=== PATIENT | male | born 1955 | race Caucasian/White ===

== ENCOUNTER 2018-10-07 23:09 | Inpatient (IN) | payer OTHER, MEDICARE ==
[~2018-10-07] VITALS: Ht 182.8 cm; Wt 95.3 kg
--- NOTE | ~2018-10-07 | EKG ---
[place], [place] ELECTROCARDIOGRAM REPORT NAME: JOSE THAKUR UNIT #: [id number] ROOM: [facility] DOCTOR: STEVENSON DRAFT REPORT BIRTHDATE: [birth year] [facility] [place] Test Date: 2018-10-07 Test Time: 23:51:27 Pat Name: JOSE THAKUR Department: ED Room: [facility] Gender: M Preprint Analyst: Sandy Costa : 1955 Requested By: HAJA PECK Order Number: [id number] Reading MD: Alex Chaudhary MD Measurements Intervals [place] Rate: 116 P: 59 GA: 184 QRS: -27 QRSD: 79 T: 43 QT: 312 QTc: 434 Interpretive Statements Sinus tachycardia Consider left atrial enlargement Borderline left axis deviation ST elevation, consider inferior injury Electronically Signed On 10-08-2018 15:59:16 PST by Alex Chaudhary MD CM:EKGRPT:ELECTROCARDIOGRAM REPORT [id number] HAJA PECK EPIPHANY DRAFT REPORT HAJA PECK
--- NOTE | ~2018-10-07 | CON ---
[place], [place] REPORT OF CONSULTATION NAME: JOSE THAKUR UNIT #: [id number] ROOM: [facility] DOCTOR: JOSE AREVALO MD BIRTHDATE: [birth year] DOS: 10/08/2018 PSYCHIATRIC CONSULTATION CHIEF COMPLAINT: "I got to get out of here man, my son is even afraid of me. I have to go help save him" HISTORY OF PRESENT ILLNESS: This is a 62-year-old white male who was brought into [facility] Emergency Room via EMS. The patient was attempting to leona a local convenience store when Police intervened. He became verbally and physically aggressive towards them. In the course of their dealing with him, it became very evident to them that the patient was grossly psychotic and delusional and they brought him to the Emergency Room at [facility] for further evaluation. Once in the Emergency Room, he was assessed and again found to be grossly delusional and psychotic and did require multiple p.r.n. intervention. He was ultimately brought up to ICU due to acute kidney failure with tubular necrosis. The patient has required multiple intramuscular injections of Geodon, Ativan, and Benadryl with partial response. Currently, the patient is rather somnolent and slurred in his speech, but his thoughts are fragmented and disjointed. There is a significant amount of paranoia and delusion present. He is able to tell me that he normally resides in [place], [place], but was on his way to [place] with his girlfriend when they were going to stop and visit his son in [place], [place]. Beyond this, he then went off into a nonsensical ramble. MENTAL STATUS: The patient is alert and oriented to person, unclear if he knows what hospital he is in, he does at least know he is in a hospital. He could not tell me how long he has been here and states the reason he is here in the hospital is because he has an ulcer on his tongue. His thoughts are fragmented and disjointed. He jumps from topic to topic, and he is grossly delusional and psychotic. There is no soham or hypomania present. He does process conversation slowly, and at times, inappropriately. Memory is somewhat suspect because of the gross psychosis. DIAGNOSIS: Schizoaffective disorder. PLAN: Given the fact that he has tolerated the intramuscular Geodon well with at least partial response, I will order Geodon 80 mg b.i.d. This should at least help control some of his mood lability, agitation, and aggression. Should you require further input or any other suggestions, please reconsult us at any time. [place], [place] REPORT OF CONSULTATION NAME: KVNGCHENGBETZYJOSE UNIT #: [id number] ROOM: [facility] DOCTOR: JOSE AREVALO MD BIRTHDATE: [birth year] JOSE AREVALO MD CM:CONSTR:REPORT OF CONSULTATION [id number] 10/09/18 0010 interface
[2018-10-07 23:10] VITALS: BP 169/103
--- NOTE | 2018-10-07 23:10 | NUR ---
OFFICER YUAN WITH [employer] AT BEDSIDE.
--- NOTE | 2018-10-07 23:17 | NUR ---
PT WHEN ASKED FOR ALLERGIES TO MEDICATIONS, STATES DO NOT GIVE ME HALIDOL AND COMPAZINE, PT STATES "THEY EFFECT MY KIDNEY FUNCTIONS AND DON'T WORK WELL WITH ME".
[2018-10-07 23:29] VITALS: BP 139/76
[2018-10-08] VITALS (8 sets, daily range): BP systolic 109–158; BP diastolic 75–111
[2018-10-08 00:01] LABS: BILIRUBIN NEGATIVE (NEGATIVE); BLOOD TRACE-LYSED (NEGATIVE); CLARITY CLEAR (CLEAR); COLOR YELLOW (YELLOW); GLUCOSE NEGATIVE (NEGATIVE); KETONE NEGATIVE (NEGATIVE); LEUKO ESTERASE NEGATIVE (NEGATIVE); NITRITE NEGATIVE (NEGATIVE); PH 5.5 (5.0-9.0); SPECIFIC GRAVITY 1.025 (1.005-1.030); UROBILINOGEN 0.2 E.U./dl (0.2-1.0)
[2018-10-08 00:13] LABS: URINE AMPHETAMINES < 1000 (1000ng/ml); URINE BARBITURATES < 200 (200ng/ml); URINE BENZODIAZEPINES < 200 (200ng/ml); URINE CANNABINOIDS (THC) < 50 (50ng/ml); URINE COCAINE < 300 (300ng/ml); URINE METHADONE < 300 (300ng/ml); URINE OPIATES < 300 (300ng/ml); URINE PHENCYCLIDINE < 25 (25ng/ml)
[2018-10-08 00:15] LABS: WBC 0-2 wbc/hpf (0-5)
[2018-10-08 00:31] LABS: BASO # 0.1 10*3/uL (0.0-0.1); BASO % 0.5 % (0.0-1.0); EOS # 0.1 10*3/uL (0.0-0.4); EOS % 0.8 % (1.0-4.0); HEMATOCRIT 45.9 % (42.0-52.0); HEMOGLOBIN 15.4 g/dl (14.0-18.0); LYMPH # 1.8 10*3/uL (1.3-4.4); LYMPH % 18.8 % (27.0-41.0); MEAN CELL VOLUME 93.7 fl (80.0-94.0); MEAN CORPUSCULAR HGB 31.4 pg (27.0-31.0); MEAN CORPUSCULAR HGB CONC 33.6 g/dl (33.0-37.0); MEAN PLATELET VOLUME 10.8 fl (9.6-12.3); MONO # 0.6 10*3/uL (0.1-1.0); MONO % 6.6 % (3.0-9.0); NEUT # 7.1 10*3/uL (2.3-7.9); PLATELET COUNT AUTOMATED 195 10*3/uL (130-400); RED CELL DISTRI WIDTH 13.3 % (0-14.5); WHITE BLOOD COUNT 9.7 10*3/uL (4.8-10.8)
--- NOTE | 2018-10-08 00:46 | NUR ---
ESTABLISHED IV ACCESS PT MADE NUMEROUS AGRESSIVE GESTURES IE CLINCHED FIST AND VERBAL THREATS OF HARM TO STAFF, AFTER IV WAS ESTABLISHED PT GIVEN SANDWICH AND MILK, PT CONTINUES DISORGANIZED SPEECH AND WORD SALAD BED RAILS UP X 2 BED IN LOWEST POSITION PT TO GO TO CT AWAITING NURSE TO RETURN FROM ADMISSION OF PT TO FLOOR SO THIS RN MAY ACCOUMPANY CT STAFF
[2018-10-08 00:49] LABS: ALBUMIN 3.4 gm/dl (3.1-4.5); ALKALINE PHOSPHATASE 69 U/L (45-117); BUN 56 mg/dl (7-24); CHLORIDE 109 mmol/L (98-107); CREATININE 2.35 mg/dL (0.70-1.30); POTASSIUM 4.4 mmol/L (3.5-5.1); SGOT/AST 34 IU/L (3-35); SGPT/ALT 66 U/L (12-78); SODIUM 139 mmol/L (136-145); TOTAL PROTEIN 8.1 gm/dL (6.4-8.2)
[2018-10-08 00:51] LABS: ACETAMINOPHEN (TYLENOL) < 5.0 ug/ml (10-30); ETHYL ALCOHOL < 3.0 mg/dl (<3); TROPONIN I < 0.015 ng/ml (<0.045)
--- NOTE | 2018-10-08 01:18 | NUR ---
ESCOUTED PT TO CT AND BACK TO ROOM #3, PT FOLLOWED DIRECTION TO MOVE FROM PORTABLE BED TO CT TABLE AND BACK TO BED, PT HOWEVER WOULD NOT REMAIN STILL LONG ENOUGH FOR ENTIRE CT DISPITE MULTIPLE ATTEMPS PT CONTINUES TO SPEAK IN UNRELATED SENTENCE FRAGMENTS OFTER THE SUBJECT OF WAR AND GOVERNMENT. IV FLUIDS RUNNING WILL CONTINUE TO MONITOR PT BED IN LOWEST POSITION BED RAILS UP X 2
--- NOTE | 2018-10-08 01:50 | NUR ---
[facility] OFFICER MONIKA HERE TO SPEAK WITH PT AND SERVE PT WIT ARREST PAPERS, PT CONTINUES TO SPEAK IN FRAGMENTED SENTENCES UNRELATED FROM 60'S MUSIC TO WAR SUBJECTS PT REMAINS AT THIS TIME IN BED
--- NOTE | 2018-10-08 02:51 | NUR ---
PT SLEEPIN IN LOW FOWLERS AIRWAY PATENT RESP EASY NO SIGN OF DISTRESS VVS
--- NOTE | 2018-10-08 03:42 | NUR ---
MENTAL HEALTH JENARO TOOK CONSULT.
--- NOTE | 2018-10-08 04:27 | NUR ---
AWAITING FOR NURSE SUPERVISION TO CALL AND GIVE PERMISSION TO TRANSPORT PT TO ICU
--- NOTE | 2018-10-08 04:28 | NUR ---
DPT RESP EASY PT SLEEPING NO SIGN OF DISTRESS BED IN LOWEST POSITON BED RAILS UP X 2
--- NOTE | 2018-10-08 05:07 | NUR ---
PT RESP EASY RATE 22 NO SIGN OF DISTRESS
--- NOTE | 2018-10-08 05:20 | NUR ---
A 62, admitted to ICCU, under the services of CRISTOBAL Tran DO with a diagnosis of AC RENAL FAILURE,DELUSIONAL DISORDER. Chief complaint is DELUSIONAL. Patient arrived via stretcher from ER. Monitor applied. Initial assessment completed. Vital signs taken and recorded. CRISTOBAL TRAN DO notified of admission to the unit. Orders received. See assessment for past medical history, medications and allergies. Patient and/or family oriented to unit. [facility] ICCU visitation policy reviewed. Clothing/patient valuable form completed. JUAN M PEGUERO
--- NOTE | 2018-10-08 06:26 | NUR ---
DR. CHAKRABORTY OK WITH WAITING TILL PATIENT WAKES UP FOR BLOOD DRAW. STAFF TO CALL LAB WHEN AWAKE.
--- NOTE | 2018-10-08 07:37 | NUR ---
MESSAGE LEFT ON JUAN M HARRIS CELL PHONE.
--- NOTE | 2018-10-08 07:43 | NUR ---
IN THE MIDDLE OF SHIFT REPORT PATIENT BECAME RESTLESS, MUMBLED SOMEWHAT INCOHERENTLY THAT HE WANTED A BLANKET. BLANKET WAS PROVIDED THEN HE BECAME MORE AND MORE AGITATED, JUMPED OUT OF BED. DOROTHY COX WAS CALLED. PT MEDICATED PER NOV AND IS NOW RESTING WITH HIS EYES CLOSED. IV FLUIDS CONTINUE. MONITOR NSR.
--- NOTE | 2018-10-08 07:52 | NUR ---
PT SLEEPING. SECURITY AT THE BEDSIDE.
--- NOTE | 2018-10-08 07:52 | NUR ---
Shift chart check completed.24 HR chart check completed.
--- NOTE | 2018-10-08 09:34 | NUR ---
AWAKE, ATTTEMPTING TO GET OUT OF BED. ASSISTED TO STAND TO VOID. COOPERATIVE. VERY UNSTEADY ON HIS FEET. SECURITY REMAINS IN ICCU. FOOD HERE. PT EATING WITHOUT DIFFICULTY.
--- NOTE | 2018-10-08 10:20 | NUR ---
DR AREVALO VISITED BRIEFLY, ORDERS RECEIVED. PT ATE WELL FOR BREAKFAST, THEN ROLLED OVER ONTO HIS SIDE AND APPEARS TO BE SLEEPING EASILY. SECURITY REMAINS IN ICCU.
--- NOTE | 2018-10-08 11:35 | NUR ---
CONTINUES TO SLEEP EASILY ON HIS LEFT SIDE.
--- NOTE | 2018-10-08 11:54 | NUR ---
AWAKE, OUT OF BED TO URINATE. PT MUMBLES "DON'T TELL MY FAMILY I'M HERE, I'M UNDER COVER".
--- NOTE | 2018-10-08 11:59 | NUR ---
PT SINGING, TELLING JOKES, LAUGHING......COOPERATIVE AT PRESENT.
--- NOTE | 2018-10-08 12:57 | NUR ---
PATIENT JUMPS UP OUT OF BED(WITHOUT WARNING) TO USE BSC/URINAL. HE TALKS TO ANYONE AND EVERYONE IN THE ICCU. HE ATE EVERYTHING FOR LUNCH AND WE ORDERED ANOTHER TWO GRILLED CHEESE SANDWICHES/TOMATO SOUP. HE'S NOW "WRITING A LETTER WITH PAPER AND A PENCIL". HE'S NOT BEEN COMBATIVE AT THIS TIME.
--- NOTE | 2018-10-08 13:02 | NUR ---
HANDED ME A LETTER AND ASKED THAT I GIVE IT TO THE PERSON. I ASKED WHO IT WAS AND HE TOOK THE LETTER BACK AND LAID BACK IN BED AND "GO TO HELL, ALL OF YOU. GO TO HELL". JUAN M HARRIS IS AWARE OF PATIENT'S ADMISSION.
--- NOTE | 2018-10-08 13:05 | NUR ---
"I'M TRYING TO PREVENT THERMONUCLEAR WAR".
--- NOTE | 2018-10-08 13:46 | NUR ---
PT ATE TWO MORE GRILLED CHEESE SANDWICHES AND TOMATO SOUP AND IS NOW SLEEPING.
[2018-10-08 14:25] LABS: BASO % 0.5 % (0.0-1.0); EOS # 0.3 10*3/uL (0.0-0.4); EOS % 4.4 % (1.0-4.0); HEMOGLOBIN 14.4 g/dl (14.0-18.0); LYMPH # 1.7 10*3/uL (1.3-4.4); LYMPH % 26.8 % (27.0-41.0); MEAN CELL VOLUME 95.4 fl (80.0-94.0); MEAN CORPUSCULAR HGB 31.2 pg (27.0-31.0); MEAN CORPUSCULAR HGB CONC 32.7 g/dl (33.0-37.0); MONO # 0.4 10*3/uL (0.1-1.0); MONO % 7.1 % (3.0-9.0); NEUT # 3.8 10*3/uL (2.3-7.9); NEUT % 60.9 % (47.0-73.0); PLATELET COUNT AUTOMATED 153 10*3/uL (130-400); RED BLOOD COUNT 4.61 10*6/uL (4.50-5.90); RED CELL DISTRI WIDTH 13.5 % (0-14.5); WHITE BLOOD COUNT 6.2 10*3/uL (4.8-10.8)
[2018-10-08 14:36] LABS: ACT PARTIAL THROMBO TIME 22.2 SECONDS (20.8-31.5)
[2018-10-08 14:41] LABS: ALBUMIN 2.9 gm/dl (3.1-4.5); CREATININE 2.23 mg/dL (0.70-1.30); PHOSPHOROUS 3.1 mg/dL (2.5-4.9); TOTAL PROTEIN 6.7 gm/dL (6.4-8.2)
[2018-10-08 14:42] LABS: FREE T4 1.14 ng/dl (0.76-1.46)
[2018-10-08 14:47] LABS: THYROID STIM HORMONE (HS) 1.47 uIU/ml (0.358-4.75)
--- NOTE | 2018-10-08 14:55 | NUR ---
IV ATIVAN FOR AGITATION. HE ASKS FOR A DRINK OF WATER THEN GETS ANGRY ABOUT THE SIZE OF THE CUP.
--- NOTE | 2018-10-08 15:02 | NUR ---
SLEEPING AT PRESENT WITHIN MINUTES OF IV ATIVAN. BED IS IN LOW POSITION WITH WHEELS LOCKED.
--- NOTE | 2018-10-08 15:23 | NUR ---
spoke with the [facility] early this am, they did call me back to get more information because they could not find client in their system, i explained that he is from [place] so they said that is different for them being in [place] so they have to look further, they did not call me back after that so i called them about 2:30pm and they said they dont have a cm there today and they may not get to this today, so i asked if they could tell me if he is service connected or should i be looking for a psych bed at another facility? they then said i could fax them the clinicals , but that did not guarantee admission, so i did do that, i called [facility] and spoke with the nurse, they are not sure if he is medically stable, they did just call me and say that he is, i did talk with Evangelina Tenorio and to apprise her and to see what they might want do as [facility] at [facility]. i tried to call the number on his chart to see if i could speak to a family member but the number rings busy all the time. i do not know why this clientis here from [place]. i did ask registration to check and see if client has medicare as he clearly is SMD so he might, and he does have medicare both A and B. Evangelina is going to check with the [facility] here to see if client could be admitted to them. i will follow as needed.
--- NOTE | 2018-10-08 15:30 | NUR ---
HAVE TALKED WITH JUAN M HARRIS ABOUT PT. PER DR VILLALOBOS THE PT IS MEDICALLY STABLE. JUAN M HARRIS WILL LET [facility] RN DIRECTOR KNOW. JUAN M ALSO RELAYS THAT SHE HAS BEEN IN CONTACT WITH [facility] [employer]. SHE WILL BE ENTERING HER NOTE SOON. THE PT IS STILL SLEEPING FROM THE IV ATIVAN.
[2018-10-08 15:35] LABS: VITAMIN D, 25-HYDROXY 26.5 ng/mL (30-100)
--- NOTE | 2018-10-08 16:39 | NUR ---
AWAKE, MUMBLING "SHIT, A LOT OF SHIT HERE". COOPERATIVE, NON COMBATIVE AT PRESENT. IV FLUIDS CONTINUE.
--- NOTE | 2018-10-08 16:56 | NUR ---
HAD SMALL EMESIS. ASSISTED TO CHAIR. PT RAMBLING CONVERSATION. ASKED IF HIS FAMILY KNOWS WHERE HE IS HE STATES "I DON'T HAVE ANY FAMILY, I KILLED THEM ALL". "IN [place]". WHEN QUESTIONED FURTHER HE SAID "I DON'T WANT TO TALK TO YOU ANYMORE, I WANT TO LEAVE THE PAST IN THE PAST."
--- NOTE | 2018-10-08 17:08 | NUR ---
SITTING UP IN CHAIR AT PRESENT. WANTS FOOD, IN SPITE OF SMALL EMESIS EARLIER.
--- NOTE | 2018-10-08 18:26 | NUR ---
BACK TO BED WITH MINIMAL ASSIST. COOPERATIVE.
--- NOTE | 2018-10-08 19:10 | NUR ---
24 HR chart check completed.
--- NOTE | 2018-10-08 20:30 | NUR ---
PATIENT BECAME AROUSED, TALKING INCOHERENT, BECOMING RESTLESS. ATIVAN GIVEN. WILL MONITOR.
--- NOTE | 2018-10-08 21:00 | NUR ---
ATIVAN EFFECTIVE. PATIENT RESTING.
--- NOTE | 2018-10-08 22:06 | NUR ---
PATIENT TRYING TO GET OUT OF BED, PULLING AT IV, STATED WE WERE ALL AND WE WERE LU PEREZ SISTERS. CONTACTED DR. WADSWORTH, NEW ORDERS RECEIVED.
--- NOTE | 2018-10-08 22:34 | NUR ---
PATIENT GIVEN ATIVAN AND BENADRYL FOR AGITATION. WILL MONITOR. AND REASSESS.
--- NOTE | 2018-10-08 23:00 | NUR ---
PATIENT RESTING, NO SIGNS OF DISTRESS. BENADRYL AND ATIVAN EFFECTIVE.
[2018-10-09] VITALS: BP 148/90
--- NOTE | 2018-10-09 00:19 | NUR ---
PATIENT AWAKE, UNCOOPERATIVE, CALLING STAFF BITCHES. PATIENT WANTED TO STAND TO TO USE BEDSIDE, REFUSING TO USE URINAL. PATIENT UNSTEADY. GOT PATIENT BACK IN BED, HE WANTED A SNACK, GAVE HIS SOME JEANA CRACKERS, HE CRUMBLED THEM AND THREW THEM AT ME. WAS GIVEN A BOX LUNCH FROM ANOTHER RN AND HE PROCEDED TO EAT THE SANDWICH. WILL CONTINUE TO MONITOR.
--- NOTE | 2018-10-09 00:35 | NUR ---
PATIENT MORE RESTLESS, TRYING TO GET OUT OF BED, ATIVAN GIVEN. WILL REASSESS.
--- NOTE | 2018-10-09 01:00 | NUR ---
PATIENT STILL RESTLESS, ATIVAN NOT EFFECTIVE. PATIENT WANTS MOVED TO RECLINING CHAIR. WAS DONE. WILL MONITOR.
--- NOTE | 2018-10-09 01:40 | NUR ---
PATIENT RESTLESS IN CHAIR, WANTS MOVED BACK TO BED. WAS PLACED BACK IN BED.
--- NOTE | 2018-10-09 03:45 | NUR ---
PATIENT RESTLESS, AGAIN, TRYING TO GET OUT OF BED, PATIENT WANTING TO EAT AND WANTS COFFEE. EXPLAINED WHEN HE COULD GET BREAKFAST. ATIVAN GIVEN. EFFECTIVE ALMOST IMMEDIATELY.
[2018-10-09 04:00] VITALS: BP 156/90
--- NOTE | 2018-10-09 04:33 | NUR ---
PATIENT AWAKE, WANTS TO WALK AROUND. TOLD THE PATIENT HE WASNT ALLOW IN ICU. HE STATED TO GET ME OUT OF HERE THEN. I TOLD HIM HE COULD TALK TO A DR IN THE MORNING AND HE STATED "BRING HIM HERE, I WILL CUT OFF HIS BALLS". INFORCED THE NEED TO STAY IN BED, AND LOWER HIS VOICE AND TV DUE TO THE OTHER PATIENTS.
[2018-10-09 05:10] LABS: BASO % 0.5 % (0.0-1.0); EOS # 0.4 10*3/uL (0.0-0.4); EOS % 5.9 % (1.0-4.0); HEMATOCRIT 42.8 % (42.0-52.0); HEMOGLOBIN 13.7 g/dl (14.0-18.0); LYMPH # 1.3 10*3/uL (1.3-4.4); LYMPH % 19.4 % (27.0-41.0); MEAN CELL VOLUME 97.1 fl (80.0-94.0); MEAN CORPUSCULAR HGB 31.1 pg (27.0-31.0); MEAN PLATELET VOLUME 11.4 fl (9.6-12.3); MONO # 0.4 10*3/uL (0.1-1.0); MONO % 6.5 % (3.0-9.0); NEUT # 4.3 10*3/uL (2.3-7.9); NEUT % 67.4 % (47.0-73.0); PLATELET COUNT AUTOMATED 144 10*3/uL (130-400); RED BLOOD COUNT 4.41 10*6/uL (4.50-5.90); RED CELL DISTRI WIDTH 13.5 % (0-14.5); WHITE BLOOD COUNT 6.4 10*3/uL (4.8-10.8)
--- NOTE | 2018-10-09 05:13 | NUR ---
PATIENT BIT TUBING FOR IVF, AND REMOVED HEART MONITOR AND STATED HE WANTS TO GET UP AND WALK. PATIENT INSTRUCTED TO GET UP IN BED, DO NOT TOUCH THE IV TUBING AND HEART MONITOR.
[2018-10-09 05:29] LABS: PHOSPHOROUS 2.6 mg/dL (2.5-4.9); TOTAL PROTEIN 6.7 gm/dL (6.4-8.2)
[2018-10-09 05:32] LABS: POTASSIUM 4.7 mmol/L (3.5-5.1)
--- NOTE | 2018-10-09 07:11 | NUR ---
24 HR chart check completed.
[2018-10-09 08:00] VITALS: BP 168/105
--- NOTE | 2018-10-09 08:38 | NUR ---
PT VERY UNCOPERATIVE, DELUSIONAL, FLIGHT OF IDEAS AND VERBALLY ABUSIVE AT TIMES. MEDICATED WITH ATIVAN 2MG IV WITH NO RELIEF.
--- NOTE | 2018-10-09 10:50 | NUR ---
spoke with bed control at the [facility] [place], client has been assigned a cm who is off today, i spoke with them to inquire whether they were going to consider/accept client for their unit, she told me she will have the nurse call me back today. i am not sure if this is still a possible plan for client or if he is going to go to our [facility], but [facility] with the [facility] until i know otherwise or until they possibly take him .
[2018-10-09 12:00] VITALS: BP 169/102
--- NOTE | 2018-10-09 12:19 | NUR ---
SPOKE WITH JUAN M HARRIS R/T PT'S TRANSFER TO [facility] FOR [facility]. JUAN M STATED THAT SHE HAS BEEN TRYING SINCE YESTERDAY TO TRY AND MAKE ARRANGEMENTS FOR TRANSFER WHEN PT IS MEDICALLY STABLE. I INFORMED JUAN M THAT PT HAS BEEN DEEMED MEDICALLY ATABLE AT THIS TIME. SHE STATES SHE WILL CONTINUE TRYING.
[2018-10-09] MEDS ORDERED: VITAMIN D32000 UNI1 PO (14:59)
[2018-10-09] MEDS ORDERED: ZIPRASIDONE HCL80 M1 PO (14:59)
--- NOTE | 2018-10-09 15:59 | NUR ---
PT DC TO [facility].
== END 2018-10-09 16:05 | disposition home health service (06) | DRG 682 ==
LOC: ED 23:09 → EDHOLD 10-08 02:34 → ICCU 10-08 02:34
PROVIDERS: Internal Medicine Nephrology; Nurse Practitioner; ADMIT Internal Medicine
DX: N17.0 Acute kidney failure with tubular necrosis (principal); G93.41 Metabolic encephalopathy; F23 Brief psychotic disorder; R65.10 Systemic inflammatory response syndrome (SIRS) of non-infectious origin without acute organ dysfunction; E78.5 Hyperlipidemia, unspecified; F17.200 Nicotine dependence, unspecified, uncomplicated; F31.9 Bipolar disorder, unspecified; I12.9 Hypertensive chronic kidney disease with stage 1 through stage 4 chronic kidney disease, or unspecified chronic kidney disease; N18.9 Chronic kidney disease, unspecified; R31.9 Hematuria, unspecified; F25.9 Schizoaffective disorder, unspecified; F22 Delusional disorders

== ENCOUNTER 2018-10-09 15:51 | Inpatient (IN) | payer MEDICARE, OTHER ==
[~2018-10-09] VITALS: Ht 186.6 cm; Wt 113.4 kg
--- NOTE | ~2018-10-09 | WRIGHTHP ---
[place], [place] PATIENT HISTORY AND PHYSICAL EXAM NAME: JOSE THAKUR UNIT #: [id number] ROOM: 310 DOCTOR: MANUEL RAMOS CNP BIRTHDATE: [birth year] DOS: 10/10/2018 CHIEF COMPLAINT: "There is nothing wrong with my heart." HISTORY OF PRESENT ILLNESS: This is a 62-year-old white male who was brought to [facility] Emergency Room via EMS. The patient was attempting to leona a local convenience store when police intervened. He became verbally and physically aggressive towards them at that time. In the course of their dealing with him, it became very evident to them that the patient was grossly psychotic and delusional and they brought him to the Emergency Room at [facility] for further evaluation. Once in the Emergency Room, he was assessed and again found to be grossly delusional and psychotic and did require multiple p.r.n. intervention. He was ultimately transferred to the ICU due to acute kidney failure with tubular necrosis. The patient required multiple intramuscular injections of Geodon, Ativan, and Benadryl with partial response. The patient reported that he normally resides in [place]. The patient continued to exhibit psychotic behaviors. Once he was medically cleared from the ICU, it was decided to transfer the patient down to the Behavioral Health Unit, so he is now admitted to the Behavioral Health Unit to rule out further organic factors and attempt to stabilize him on medications. We will encourage the patient to engage in individual and kruse milieu activity. We will continue fall and safety precautions and plan to return the patient to the least restrictive environment when he is considered psychiatrically stable. PAST MEDICAL HISTORY: Positive for acute kidney failure with tubular necrosis, brief psychotic disorder, hyperlipidemia, schizophrenia, bipolar disorder, essential hypertension and chronic kidney disease. SOCIAL HISTORY: The patient does smoke cigarettes. It is unclear at this time if he has any drug or alcohol use. STRENGTHS: The patient is ambulatory. WEAKNESSES: The patient is exhibiting psychosis at this time. MENTAL STATUS: The patient is alert and oriented to self. He is somewhat irritable and agitated; however, cooperative. No overt soham or hypomania noted. The patient remains delusional. No paranoia noted. No auditory or visual hallucinations noted at this time. The patient does remain psychotic. DIAGNOSES: Brief psychotic disorder, schizophrenia, bipolar disorder. PLAN: We will change the patient's Depakote syrup to Depakote tablets 500 mg 3 times a day, due to the patient not taking the syrup and liquids. I will put the Geodon 80 mg on hold at this time until we were able to obtain an EKG to check for QT prolongation and plan after consultation with Dr. Olmedo to increase Thorazine to 100 mg 3 times a day. I will continue to plan to engage the patient in individual and kruse milieu activity. Continue on safety cropped precautions. Plan to return the patient to the least restrictive environment once he is considered psychiatrically stable. [place], [place] PATIENT HISTORY AND PHYSICAL EXAM NAME: JOSE THAKUR UNIT #: [id number] ROOM: 310 DOCTOR: MANUEL RAMOS CNP BIRTHDATE: [birth year] Manuel Ramos CNP CM:HISPHYS:PATIENT HISTORY AND PHYSICAL EXAMINATION 1515 [id number] MANUEL RAMOS CNP 10/10/18 1642 interface
--- NOTE | ~2018-10-09 | PR ---
[place], [place] PROGRESS NOTE NAME: JOSE THAKUR UNIT #: [id number] ROOM: 310 DOCTOR: JOSE AREVALO MD BIRTHDATE: [birth year] DOS: 10/11/2018 CHIEF COMPLAINT: "Ya the kittens were in the pine box and I was there to." SUMMARY OF THE VISIT: The patient was interviewed as he was sitting at the edge of the dining area. He engaged readily in conversation that was very bizarre and disjointed. He jumped from topic to topic. I did attempt to reorient him and discussed with him the fact that he is here on a police hold and he did not want to talk about that. He did state that he would at least take pills as long as they were not capsules or liquids as he was afraid that those types of medicines would be poisoned. He continues to be very bizarre, very sexually inappropriate with female staff and residents. He is at least taking his medicine and is not exhibiting sedation, somnolence, extrapyramidal symptoms or tardive dyskinesia. MENTAL STATUS: He is alert and oriented. Mood does seem to be labile. Affect inappropriate. There is no soham, hypomania, but he is grossly psychotic. Memory does have gaps. PLAN: I have added Zyprexa 10 mg b.i.d. given the severity of his psychosis and his inappropriate behavior. We will monitor and support. JOSE AREVALO MD CM:PNTRANS [id number] JOSE AREVALO MD 10/11/18 1148 interface
--- NOTE | ~2018-10-09 | EKG ---
[place], [place] ELECTROCARDIOGRAM REPORT NAME: JOSE THAKUR UNIT #: [id number] ROOM: 310 DOCTOR: EPIPHANY DRAFT REPORT BIRTHDATE: [birth year] [facility] Test Date: 2018-10-10 Test Time: 14:28:46 Pat Name: JOSE THAKUR Department: Room: 310 1 Gender: M Clinical Applications Manager: Lindsey Elena : 1955 Requested By: JOSE AREVALO Order Number: [id number] Reading MD: Rubin Vasquez MD Measurements Intervals [place] Rate: 85 P: 37 MD: 207 QRS: 12 QRSD: 81 T: 54 QT: 364 QTc: 433 Interpretive Statements Sinus rhythm Borderline prolonged MD interval Anteroseptal infarct, age indeterminate Compared to ECG 10/07/2018 23:51:27 Sinus tachycardia no longer present ST (T wave) deviation no longer present Myocardial infarct finding still present Electronically Signed On 10-10-2018 20:09:59 PST by Rubin Vasquez MD CM:EKGRPT:ELECTROCARDIOGRAM REPORT 1428 08 JOSE GAMINO DRAFT REPORT JOSE AREVALO MD
--- NOTE | ~2018-10-09 | PR ---
[place], [place] PROGRESS NOTE NAME: JOSE THAKUR UNIT #: [id number] ROOM: 310 DOCTOR: JOSE AREVALO MD BIRTHDATE: [birth year] DOS: 10/12/2018 INTERVAL NOTE CHIEF COMPLAINT: "No, please [facility]'t [facility] to the [facility], you guys are doing a pretty good job here." SUMMARY OF THE VISIT: The patient was interviewed in the dining area. He was ordering his meals for tomorrow. He was rather loud and boisterous, but as I approached and engaged him, he calmed down and engaged readily in conversation. I discussed with him the possible [facility] to the [facility] to which he objected to and stated he did not want to go to the [facility]. Instead, he reported that we are doing a good job and he had lelo in the medicines that we were utilizing for him. I reiterated to him that he needed to continue to comply with his care here for us to even consider a continued length of stay. He nodded in approval. Nurses do report that he did comply with his nighttime medicines and overall has redirected a little better than he had previously. He is still loud and boisterous. He is also sexually inappropriate with both patients and with staff. MENTAL STATUS: He is alert and oriented to person, place, and time. Mood remains expansive and labile. Affect at times inappropriate. He is grossly psychotic as well. Memory for the most part is intact. PLAN: I will utilize 2 antipsychotics at this point in time given the severity of his symptomatology and the fact that he represents a substantial risk of harm to self and others. I will utilize Invega 9 mg in the morning and increase his Latuda to 80 mg twice daily in an effort to try to control his mood lability and psychosis. We will engage in individual and kruse milieu activities, returning to the least restrictive environment when psychiatrically stable. JOSE AREVALO MD CM:PNTRANS [id number] JOSE AREVALO MD 10/12/18 1304 interface
--- NOTE | ~2018-10-09 | DS ---
[place], [place] DISCHARGE SUMMARY NAME[id number] UNIT #: [id number] ROOM: 310 DOCTOR: JOSE AREVALO MD BIRTHDATE: [birth year] DOS: 10/12/2018 CHIEF COMPLAINT: "There is nothing wrong with my heart." HISTORY OF PRESENT ILLNESS: This is a 62-year-old white male who was brought to [facility] Emergency Room via EMS. The patient was attempting to leona a local convenience store when police intervened. He became verbally and physically aggressive towards them. In the course with them dealing with him, he was found to be grossly psychotic and it was felt that a hospital evaluation was warranted. The patient was brought to the Emergency Room at [facility] and was found to be grossly delusional and psychotic. He required multiple p.r.n. interventions while in the Emergency Room and ultimately was transferred to ICU due to acute renal failure and tubular necrosis. While on the medical floor, the patient continued to require intermuscular injections with good results. The patient was subsequently transferred to the [facility] to further evaluate and to stabilize on medication. SUMMARY OF HOSPITAL COURSE: The patient was admitted to the [facility] and was initially attempted to be stabilized on Geodon; however, the patient refused to take this medication and refused any of the older antipsychotics. I did offer him Invega, which he did take and later Latuda which he did take at nighttime. After several doses of these medications, the patient did improve and did start verbalizing that he was feeling better. He also at the same time verbalized that he did not have a place to stay and was concerned about where he would go. Later that same day, after stating that he was better, the patient began to refuse to engage in any group activities and began to be very loud and demanding about having his laundry done. It became evident that the patient was attempting to malinger and stay in the hospital longer. For this reason and because he had shown such significant improvement early on, it was felt that he could be discharged at that time. The patient was sent here on a police hold and at the time of discharge the police were notified and did meet him after he left the unit and brought him to the retirement to be further evaluated. MENTAL STATUS AT THE TIME OF DISCHARGE: The patient was alert and oriented to person, place and time. Mood at times was somewhat labile, but this seemed controllable. There was no overt true soham or hypomania. There were no gross psychotic symptoms. Memory for the most part was fully intact. There was no symptom suggestive of somnolence, sedation, extrapyramidal symptoms or tardive dyskinesia. DISCHARGE DIAGNOSIS: Schizoaffective disorder. DISPOSITION: The patient was discharged under the care of the [facility]. [place], [place] DISCHARGE SUMMARY NAME: JOSE THAKUR UNIT #: [id number] ROOM: 310 DOCTOR: JOSE AREVALO MD BIRTHDATE: [birth year] JOSE AREVALO MD CM:[id number] JOSE AREVALO MD 10/25/18 1010 interface
[~2018-10-09 15:51] MED LIST: VITAMIN D32000 UNI1 PO; ZIPRASIDONE HCL80 M1 PO
[2018-10-09 18:00] VITALS: BP 148/83
[2018-10-10 08:49] VITALS: BP 145/90
[2018-10-10 20:32] VITALS: BP 151/99
[2018-10-11 07:17] VITALS: BP 148/76
[2018-10-11 07:31] LABS: CREATININE 1.96 mg/dL (0.70-1.30); POTASSIUM 4.2 mmol/L (3.5-5.1)
[2018-10-11 20:00] VITALS: BP 131/86
[2018-10-12 07:59] VITALS: BP 150/89
== END 2018-10-12 14:35 | DRG 885 ==
LOC: 3N 15:51
PROVIDERS: ADMIT Psychiatry & Neurology Psychiatry
DX: F23 Brief psychotic disorder (principal); N17.0 Acute kidney failure with tubular necrosis; F31.9 Bipolar disorder, unspecified; F17.210 Nicotine dependence, cigarettes, uncomplicated; E78.5 Hyperlipidemia, unspecified; I12.9 Hypertensive chronic kidney disease with stage 1 through stage 4 chronic kidney disease, or unspecified chronic kidney disease; N18.3 Chronic kidney disease, stage 3 (moderate); F25.9 Schizoaffective disorder, unspecified; E66.9 Obesity, unspecified

== ENCOUNTER 2018-10-15 15:27 | Emergency (ER) | payer OTHER, MEDICARE ==
[~2018-10-15] VITALS: Ht 177 cm; Wt 102.1 kg
[2018-10-15 16:04] LABS: BILIRUBIN NEGATIVE (NEGATIVE); BLOOD 1+ (NEGATIVE); CLARITY CLOUDY (CLEAR); COLOR YELLOW (YELLOW); GLUCOSE NEGATIVE (NEGATIVE); KETONE NEGATIVE (NEGATIVE); LEUKO ESTERASE NEGATIVE (NEGATIVE); NITRITE NEGATIVE (NEGATIVE); PH 5.5 (5.0-9.0); UROBILINOGEN 0.2 E.U./dl (0.2-1.0)
[2018-10-15 16:06] LABS: BASO % 0.4 % (0.0-1.0); EOS # 0.2 10*3/uL (0.0-0.4); EOS % 2.8 % (1.0-4.0); HEMATOCRIT 42.8 % (42.0-52.0); HEMOGLOBIN 14.3 g/dl (14.0-18.0); LYMPH # 1.4 10*3/uL (1.3-4.4); LYMPH % 17.7 % (27.0-41.0); MEAN CELL VOLUME 92.8 fl (80.0-94.0); MEAN CORPUSCULAR HGB CONC 33.4 g/dl (33.0-37.0); MEAN PLATELET VOLUME 10.8 fl (9.6-12.3); MONO # 0.7 10*3/uL (0.1-1.0); MONO % 9.5 % (3.0-9.0); NEUT # 5.4 10*3/uL (2.3-7.9); NEUT % 69.1 % (47.0-73.0); PLATELET COUNT AUTOMATED 177 10*3/uL (130-400); RED BLOOD COUNT 4.61 10*6/uL (4.50-5.90); WHITE BLOOD COUNT 7.8 10*3/uL (4.8-10.8)
[2018-10-15 16:07] LABS: URINE AMPHETAMINES < 1000 (1000ng/ml); URINE BARBITURATES < 200 (200ng/ml); URINE BENZODIAZEPINES < 200 (200ng/ml); URINE CANNABINOIDS (THC) < 50 (50ng/ml); URINE COCAINE < 300 (300ng/ml); URINE METHADONE < 300 (300ng/ml); URINE OPIATES < 300 (300ng/ml)
[2018-10-15 16:11] LABS: URINE PHENCYCLIDINE < 25 (25ng/ml)
[2018-10-15 16:20] LABS: BACTERIA 2+; EPITHELIAL CELLS 0-2; WBC 0-2 wbc/hpf (0-5)
[2018-10-15 16:23] LABS: ALBUMIN 3.1 gm/dl (3.1-4.5); ALKALINE PHOSPHATASE 64 U/L (45-117); BUN 45 mg/dl (7-24); CHLORIDE 109 mmol/L (98-107); POTASSIUM 3.8 mmol/L (3.5-5.1); SGOT/AST 31 IU/L (3-35); SGPT/ALT 45 U/L (12-78); SODIUM 141 mmol/L (136-145); TOTAL PROTEIN 7.3 gm/dL (6.4-8.2)
[2018-10-15 16:26] LABS: ACETAMINOPHEN (TYLENOL) < 5.0 ug/ml (10-30); ETHYL ALCOHOL < 3.0 mg/dl (<3)
== END 2018-10-15 17:44 ==
LOC: ED 15:27
PROVIDERS: Emergency Medicine
DX: F31.9 Bipolar disorder, unspecified (principal); I12.9 Hypertensive chronic kidney disease with stage 1 through stage 4 chronic kidney disease, or unspecified chronic kidney disease; N18.9 Chronic kidney disease, unspecified; E66.9 Obesity, unspecified; Z68.34 Body mass index [BMI] 34.0-34.9, adult